=== PATIENT | female | born 1940 | race Caucasian/White ===

== ENCOUNTER 2019-11-19 06:22 | Inpatient (IN) ==
[2019-11-19 06:34] VITALS: BMI 28.1
[2019-11-19] MEDS ORDERED: NS 1000 ML 1,000 ML ONE (07:18)
[2019-11-19] MEDS ORDERED: ZOFRAN INJ 4 MG VIAL ONE (07:24)
[2019-11-19] MEDS ORDERED: ZOFRAN INJ 4 MG VIAL IVP ONE (07:24)
[2019-11-19 07:25] LABS: BASOPHILS % (AUTO) 0.4 % (0.2-1.0); EOSINOPHILS # (AUTO) 0.1 x10^3/uL (0.0-0.2); EOSINOPHILS % (AUTO) 1.2 % (0.9-2.9); HEMATOCRIT 40.6 % (36.0-47.0); HEMOGLOBIN 14.1 g/dL (12.0-16.0); LYMPHOCYTES # (AUTO) 1.6 X10^3/uL (1.3-2.9); LYMPHOCYTES % (AUTO) 14.9 % (21.0-51.0); MEAN CORPUSCULAR HEMOGLOBIN 32.6 pg (27.0-34.0); MEAN CORPUSCULAR HGB CONC 34.8 g/dL (33.0-35.0); MEAN CORPUSCULAR VOLUME 93.6 fL (80.0-100.0); MEAN PLATELET VOLUME 7.9 fL (7.4-11.0); MONOCYTES # (AUTO) 0.7 x10^3/uL (0.3-0.8); NEUTROPHILS # (AUTO) 7.9 x10^3/uL (2.2-4.8); NEUTROPHILS % (AUTO) 76.5 % (42.0-75.0); PLATELET COUNT 161 X10^3/uL (150.0-450.0); RED BLOOD COUNT 4.34 X10^6/uL (3.5-5.4); RED CELL DISTRIBUTION WIDTH 13.2 % (11.6-16.5); WHITE BLOOD COUNT 10.4 X10^3/uL (3.6-10.0)
[2019-11-19 07:36] LABS: ALANINE AMINOTRANSFERASE 29 Units/L (12-78); ALBUMIN 3.8 g/dL (3.4-5.0); ALKALINE PHOSPHATASE 75 Units/L (46-116); AMYLASE 42 Units/L (25-115); ASPARTATE AMINO TRANSFERASE 23 Units/L (15-37); BLOOD UREA NITROGEN 22 mg/dL (7-18); CALCIUM 10.2 mg/dL (8.5-10.1); CARBON DIOXIDE 29.1 mmol/L (21-32); CHLORIDE 101 mmol/L (98-107); COR NA(FOR HYPERGLY) 138 mmol/L (136-145); CREATININE 1.34 mg/dL (0.55-1.02); LIPASE 58 Units/L (73-393); SODIUM 138 mmol/L (136-145); eGFR NON BLACK RACES 40 (>60)
--- NOTE | 2019-11-19 07:51 | DR.EXTPAIN ---
HPI Time seen Time Seen by Provider: 11/19/19 06:58 PCP Primary Care Physician: gregorio HPI Comment HPI Comment: PATIENT IS 79YR OLD WHITE FEMALE IN ER WITH LOWER ABDOMINAL PAIN WITH CONSTIPATION FOR 4 DAYS. GETING WORSE. NO VOMITING. DECREASE URINE OUTPUT. NO FEVER. PAIN IS SHARP, MAINLY LLQ 8/10 AND RADIATES TO RECTAL AREA. PATIENT DID NOT TAKE MEDICATION FOR CONSTIPATION. Complaint/Symptoms Chief Complaint Doctor Comments: PATIENT HAVE NOT HAD BM 4 DAYS. LOWER BADOMINAL PAIN. Chief Complaint:: pt stated she has not hada bowel movement in 3 to 4 days and thinks she may be impacted. Nurses notes reviewed Nurses Notes Review: Yes Source History Provided: Patient and Family Member (SON.) Mode of arrival Mode of Arrival: Ambulatory Timing Onset of Chief Complaint: 11/15/19 Context History of: Arthritis Associated signs and symptoms Associated Signs and Symptoms: Weakness, Pain and Abdominal Pain PMH PMH Past Medical History: No Past Surgical History: Yes Surgical History: Unknown Past Surgical History Comment: to long ago Family History History of Family Medical Conditions: No Social History Does patient currently use any type of tobacco product: No Have you used tobacco products in the last 12 months: No Type of Tobacco Use: None Does any household member use tobacco: No Alcohol Use: None Do you use any recreational Drugs:: No Lives With: Family Lives Where: Home infectious screening In the last 2 months have you had wt loss of >10#?: NO Have you had fever, night sweats or hemotysis?: No Have you traveled outside the country in the last 6 months?: No Isolation: Standard ROS Review of Systems Constitutional: No Symptoms Reported and See HPI; negative Fever, Weakness and Fatigue Eyes: No Symptoms Reported and See HPI ENTM: No Symptoms Reported, See HPI and Ear Pain; negative Throat Pain Respiratoy: No Symptoms Reported and See HPI; negative Short of Breath and Wheezing Cardiovascular: No Symptoms Reported and See HPI Gastrointestinal/Abdominal: No Symptoms Reported, See HPI and Abdominal Pain Genitourinary: No Symptoms Reported and See HPI Neurological: No Symptoms Reported, See HPI and Problems Walking (OFF BALANCE WALKING.) Musculoskeletal: No Symptoms Reported and See HPI Integumentary: No Symptoms Reported and See HPI Hematologic/Lymphatic: No Symptoms Reported, See HPI and Easy Bruising Endocrine: No Symptoms Reported, See HPI and Increased Urine (DECREASE URINE OUTPUT.); negative Increased Thirst Psychiatric: No Symptoms Reported and See HPI All Other Systems: Reviewed and Negative PE Vital Signs Vitals: Pulse Rate 92 Respiratory Rate 16 Blood Pressure 144/72 O2 Sat by Pulse Oximetry 94 General Limitations: No Limitations General Appearance: Alert and In No Apparent Distress Head Head Exam: Normal Inspection and Atraumatic Eyes Eye exam: Normal Appearance ENT ENT Exam: Normal Exam, Normal Oropharynx, Normal External Ear Exam and TM's Normal Bilaterally Neck Neck Exam: Normal Inspection and Trachea Midline; negative Tenderness and Lymphadenopathy Chest Chest Inspection: Normal Inspection and Symmetric Chest Wall Rise; negative Tenderness Respiratory Respiratory Exam: Normal Lung Sounds Bilat; negative Accessory Muscle Use, Chest Wall Tenderness and Respiratory Distress Respiratory Exam: Bilateral: Rhonchi and Lower: Rhonchi Cardiovascular Cardiovascular Exam: Regular Rate, Normal Rhythm and Normal Heart Sounds Abdominal Exam Abdominal Exam: Normal Inspection, Normal Bowel Sounds, Soft and Tenderness Abdominal Tenderness: LLQ, Diffuse and Moderate Extremities Extremities Exam: Normal Inspection and Normal Capillary Refill; negative Tenderness and Edema Back Back Exam: Normal Inspection Neurological Neurological Exam: Alert and Oriented X3; negative Motor Sensory Deficit Psychiatric Psychiatric Exam: Normal Affect and Normal Mood Skin Skin Exam: Dry MDM Differential Diagnosis Differential Diagnosis: Other (CONSTIPATION, BOWEL OBSTRUCTION, DIVERTICULITIS, KIDNEY STONE, UTI, PYELONEPHRITIS.) COURSE Treatment Treatment: SEE ORDERS. PATIENT SIGN OUT TO DR. GAN AT 08:05AM. Education/Counseling Education/Counseling: Patient and Family ROR Labs Reviewed Laboratory Results Reviewed?: Yes Result Diagrams: 11/19/19 07:15 11/19/19 07:15 Laboratory: WBC 10.4 X10^3/uL (3.6-10.0) H 11/19/19 07:15 RBC 4.34 X10^6/uL (3.5-5.4) 11/19/19 07:15 Hgb 14.1 g/dL (12.0-16.0) 11/19/19 07:15 Hct 40.6 % (36.0-47.0) 11/19/19 07:15 MCV 93.6 fL (80.0-100.0) 11/19/19 07:15 MCH 32.6 pg (27.0-34.0) 11/19/19 07:15 MCHC 34.8 g/dL (33.0-35.0) 11/19/19 07:15 RDW 13.2 % (11.6-16.5) 11/19/19 07:15 Plt Count 161 X10^3/uL (150.0-450.0) 11/19/19 07:15 MPV 7.9 fL (7.4-11.0) 11/19/19 07:15 Neut % (Auto) 76.5 % (42.0-75.0) H 11/19/19 07:15 Lymph % (Auto) 14.9 % (21.0-51.0) L 11/19/19 07:15 [place] % (Auto) 7.0 % (0.0-13.0) 11/19/19 07:15 Eos % (Auto) 1.2 % (0.9-2.9) 11/19/19 07:15 Baso % (Auto) 0.4 % (0.2-1.0) 11/19/19 07:15 Neut # (Auto) 7.9 x10^3/uL (2.2-4.8) H 11/19/19 07:15 Lymph # (Auto) 1.6 X10^3/uL (1.3-2.9) 11/19/19 07:15 [place] # (Auto) 0.7 x10^3/uL (0.3-0.8) 11/19/19 07:15 Eos # (Auto) 0.1 x10^3/uL (0.0-0.2) 11/19/19 07:15 Baso # (Auto) 0.0 X10^3/uL (0.0-0.1) 11/19/19 07:15 Absolute Nucleated RBC 0.0 /100WBC 11/19/19 07:15 Sodium 138 mmol/L (136-145) 11/19/19 07:15 Corrected Sodium 138 mmol/L (136-145) 11/19/19 07:15 Potassium 3.9 mmol/L (3.5-5.1) 11/19/19 07:15 Chloride 101 mmol/L (98-107) 11/19/19 07:15 Carbon Dioxide 29.1 mmol/L (21-32) 11/19/19 07:15 BUN 22 mg/dL (7-18) H 11/19/19 07:15 Creatinine 1.34 mg/dL (0.55-1.02) H 11/19/19 07:15 Est GFR (MDRD) Af Amer 49 (>60) L 11/19/19 07:15 Est GFR (MDRD) Non-Af 40 (>60) L 11/19/19 07:15 Glucose 111 mg/dL (65-99) H 11/19/19 07:15 Calcium 10.2 mg/dL (8.5-10.1) H 11/19/19 07:15 Corrected Calcium TNP 11/19/19 07:15 Total Bilirubin 0.50 mg/dL (0.2-1.0) 11/19/19 07:15 AST 23 Units/L (15-37) 11/19/19 07:15 ALT 29 Units/L (12-78) 11/19/19 07:15 Alkaline Phosphatase 75 Units/L (46-116) 11/19/19 07:15 Total Protein 8.0 g/dL (6.4-8.2) 11/19/19 07:15 Albumin 3.8 g/dL (3.4-5.0) 11/19/19 07:15 Globulin 4.2 g/dL (2.5-4.5) 11/19/19 07:15 Albumin/Globulin Ratio 0.9 Ratio (1.1-2.1) L 11/19/19 07:15 Amylase 42 Units/L (25-115) 11/19/19 07:15 Lipase 58 Units/L (73-393) L 11/19/19 07:15 Opioid Opioid Risk Tool Total: 0 Total Score Risk Category: Low Risk Copyright: Saúl TAVERAS predicting aberrant behaviors Instructions Forms: Excuse From Work Patient Portal
--- NOTE | 2019-11-19 07:57 | CT ---
HISTORY:Constipation, nauseaStudy: CT abdomen and pelvis without contrastComparison:NoneTechnique: Multiple axial images of the abdomen and pelvis were obtained without IV contrast. Oral contrast was not administered. Dose reduction techniques including Automated Exposure Control (AEC) and adjustment of mA and kV were utilized.FINDINGS:Please note evaluation is limited without IV contrast.The lung bases are clear. The liver, spleen, pancreas, and adrenal glands are unremarkable in their unenhanced appearance. Gallbladder is removed. No renal calculi or obstructive uropathy.No free intraperitoneal air. Large volume of stool is present in the colon. There is a transition at the sigmoid colon to decompressed bowel loops with pericolonic stranding and fascial thickening in this region. Cannot exclude underlying inflammation, mass or stricture. No free fluid is identified. The appendix is normal.Mild superior endplate depressions are present at T12 and L1 which may represent Schmorl's nodes. There are sclerotic degenerative endplate changes at L3-L4. Limited evaluation of vascular structures due to lack of IV contrast. No pathologically enlarged lymph nodes are identified. Normal urinary bladder. Uterus is removed.IMPRESSION ABDOMEN/PELVIS:1. Large volume of retained stool throughout the colon with transition point at the sigmoid colon to decompressed bowel segment with surrounding pericolonic stranding and fascial thickening in this region. This could be due to underlying inflammation, stricture or mass. GI follow-up is recommended.Electronically signed by: RAMON MARIA (Nov 19, 2019 07:55:29)
[2019-11-19] MEDS ORDERED: NS 1000 ML 1,000 ML IV SCH (08:00)
--- NOTE | 2019-11-19 08:29 | ED.ABDFE ---
HPI Time Seen Time Seen by Provider: 11/19/19 06:58 PCP Primary Care Physician: gregorio HPI Comment HPI Comment: abd pain for a week Complaint Doctors Chief Complaint Comments: Pain began a week or so ago. Pt has some dementia so memory not exact. She vomited at onset and has had some nausea since. Constipated for 3-4 days. Chief Complaint:: pt stated she has not had a bowel movement in 3 to 4 days and thinks she may be impacted. Self Treatment fo Chief Complaint: miralax, stool softener Reviewed Nurses Notes Review: Yes Source History Provided: Patient and Family Member Mode of arrival Mode of Arrival: Ambulatory Timing Onset of Chief Complaint: 11/15/19 Came on: Gradually Duration Since Onset: Since Onset Location Location: LLQ Severity Severity: Moderate Quality Quality: Aching and Cramping Context History of: Abdominal surgery; denies Similar pain (dx) Modifying factors Worsening Factors: Nothing Improving Factors: Nothing Associated signs and symptoms Associated Signs and Symptoms: Nausea and Constipation PMH PMH Past Medical History: No Past Medical History: Dementia and Hypertension Past Medical History Comment: high cholesterol. Past Surgical History: Yes Surgical History: Cholecystectomy and Hysterectomy Family History History of Family Medical Conditions: No Social History Does patient currently use any type of tobacco product: No Have you used tobacco products in the last 12 months: No Type of Tobacco Use: None Does any household member use tobacco: No Alcohol Use: None Do you use any recreational Drugs:: No Lives With: Family Lives Where: Home infectious screening In the last 2 months have you had wt loss of >10#?: NO Have you had fever, night sweats or hemotysis?: No Have you traveled outside the country in the last 6 months?: No Isolation: Standard ROS Review of Systems Constitutional: No Symptoms Reported; negative Chills and Fever Respiratoy: No Symptoms Reported Cardiovascular: No Symptoms Reported Gastrointestinal/Abdominal: See HPI, Abdominal Pain, Constipation and Nausea Genitourinary: No Symptoms Reported; negative Dysuria and Frequency Neurological: No Symptoms Reported Musculoskeletal: No Symptoms Reported All Other Systems: Reviewed and Negative PE Vital Signs Vitals: Pulse Rate [Right Brachial] 77 Pulse Rate 92 Respiratory Rate 16 Blood Pressure [Right Arm] 159/72 Blood Pressure 144/72 O2 Sat by Pulse Oximetry 99 General Limitations: Other (some dementia) General Appearance: Alert and In No Apparent Distress Head Head Exam: Normal Inspection Eyes Eye exam: Normal Appearance and EOMI; negative Scleral Icterus ENT ENT Exam: Mucous Membranes Dry Chest Chest Inspection: Normal Inspection Respiratory Respiratory Exam: Normal Lung Sounds Bilat Cardiovascular Cardiovascular Exam: Regular Rate and Normal Rhythm Abdominal Exam Abdominal Exam: Normal Bowel Sounds, Soft, Distention, Tenderness and Guarding; negative Rebound, Rigidity and Pulsatile Mass Abdominal Tenderness: LLQ Rectal Rectal Exam: Deferred Extremeties Extremities Exam: Full ROM Neurologic Neurological Exam: Alert and Other (smiling, talkative, appropriate) Psychiatric Psychiatric Exam: Normal Affect and Normal Mood Skin Skin Exam: Warm, Dry and Normal Color; negative Rash and Diaphoresis MDM Differential Diagnosis Differential Diagnosis- Considerations may include:: Bowel Obstruction, Constipation and Diverticular disease COURSE Treatment Treatment: IV fluids. Due to distal colon inflammation, will defer an enema at this time. Reevaluation 1st: Unchanged ROR Labs Reviewed Laboratory Results Reviewed?: Yes Result Diagrams: 11/19/19 07:15 11/19/19 07:15 Laboratory: WBC 10.4 X10^3/uL (3.6-10.0) H 11/19/19 07:15 RBC 4.34 X10^6/uL (3.5-5.4) 11/19/19 07:15 Hgb 14.1 g/dL (12.0-16.0) 11/19/19 07:15 Hct 40.6 % (36.0-47.0) 11/19/19 07:15 MCV 93.6 fL (80.0-100.0) 11/19/19 07:15 MCH 32.6 pg (27.0-34.0) 11/19/19 07:15 MCHC 34.8 g/dL (33.0-35.0) 11/19/19 07:15 RDW 13.2 % (11.6-16.5) 11/19/19 07:15 Plt Count 161 X10^3/uL (150.0-450.0) 11/19/19 07:15 MPV 7.9 fL (7.4-11.0) 11/19/19 07:15 Neut % (Auto) 76.5 % (42.0-75.0) H 11/19/19 07:15 Lymph % (Auto) 14.9 % (21.0-51.0) L 11/19/19 07:15 [place] % (Auto) 7.0 % (0.0-13.0) 11/19/19 07:15 Eos % (Auto) 1.2 % (0.9-2.9) 11/19/19 07:15 Baso % (Auto) 0.4 % (0.2-1.0) 11/19/19 07:15 Neut # (Auto) 7.9 x10^3/uL (2.2-4.8) H 11/19/19 07:15 Lymph # (Auto) 1.6 X10^3/uL (1.3-2.9) 11/19/19 07:15 [place] # (Auto) 0.7 x10^3/uL (0.3-0.8) 11/19/19 07:15 Eos # (Auto) 0.1 x10^3/uL (0.0-0.2) 11/19/19 07:15 Baso # (Auto) 0.0 X10^3/uL (0.0-0.1) 11/19/19 07:15 Absolute Nucleated RBC 0.0 /100WBC 11/19/19 07:15 Sodium 138 mmol/L (136-145) 11/19/19 07:15 Corrected Sodium 138 mmol/L (136-145) 11/19/19 07:15 Potassium 3.9 mmol/L (3.5-5.1) 11/19/19 07:15 Chloride 101 mmol/L (98-107) 11/19/19 07:15 Carbon Dioxide 29.1 mmol/L (21-32) 11/19/19 07:15 BUN 22 mg/dL (7-18) H 11/19/19 07:15 Creatinine 1.34 mg/dL (0.55-1.02) H 11/19/19 07:15 Est GFR (MDRD) Af Amer 49 (>60) L 11/19/19 07:15 Est GFR (MDRD) Non-Af 40 (>60) L 11/19/19 07:15 Glucose 111 mg/dL (65-99) H 11/19/19 07:15 Calcium 10.2 mg/dL (8.5-10.1) H 11/19/19 07:15 Corrected Calcium TNP 11/19/19 07:15 Total Bilirubin 0.50 mg/dL (0.2-1.0) 11/19/19 07:15 AST 23 Units/L (15-37) 11/19/19 07:15 ALT 29 Units/L (12-78) 11/19/19 07:15 Alkaline Phosphatase 75 Units/L (46-116) 11/19/19 07:15 Total Protein 8.0 g/dL (6.4-8.2) 11/19/19 07:15 Albumin 3.8 g/dL (3.4-5.0) 11/19/19 07:15 Globulin 4.2 g/dL (2.5-4.5) 11/19/19 07:15 Albumin/Globulin Ratio 0.9 Ratio (1.1-2.1) L 11/19/19 07:15 Amylase 42 Units/L (25-115) 11/19/19 07:15 Lipase 58 Units/L (73-393) L 11/19/19 07:15 Other Results Comments: HISTORY:Constipation, nausea Study: CT abdomen and pelvis without contrast Comparison:None Technique: Multiple axial images of the abdomen and pelvis were obtained without IV contrast. Oral contrast was not administered. Dose reduction techniques including Automated Exposure Control (AEC) and adjustment of mA and kV were utilized. FINDINGS: Please note evaluation is limited without IV contrast. The lung bases are clear. The liver, spleen, pancreas, and adrenal glands are unremarkable in their unenhanced appearance. Gallbladder is removed. No renal calculi or obstructive uropathy. No free intraperitoneal air. Large volume of stool is present in the colon. There is a transition at the sigmoid colon to decompressed bowel loops with pericolonic stranding and fascial thickening in this region. Cannot exclude underlying inflammation, mass or stricture. No free fluid is identified. The appendix is normal. Mild superior endplate depressions are present at T12 and L1 which may represent Schmorl's nodes. There are sclerotic degenerative endplate changes at L3-L4. L imited evaluation of vascular structures due to lack of IV contrast. No pathologically enlarged lymph nodes are identified. Normal urinary bladder. Uterus is removed. IMPRESSION ABDOMEN/PELVIS: 1. Large volume of retained stool throughout the colon with transition point at the sigmoid colon to decompressed bowel segment with surrounding pericolonic stranding and fascial thickening in this region. This could be due to underlying inflammation, stricture or mass. GI follow-up is recommended. Electronically signed by: RAMON MARIA (Nov 19, 2019 07:55:29) Opioid Opioid Risk Tool Total: 0 Total Score Risk Category: Low Risk Copyright: Saúl TAVERAS predicting aberrant behaviors Instructions Forms: Excuse From Work Patient Portal ADDITIONAL NOTES Additional Notes Additional Notes: Patient admitted to Dr. Ram for colitis, abdominal pain, marked constipation.
[2019-11-19] MEDS ORDERED: NS 100 ML IV + SPIKE MINIBAG* 100 ML IV ONE (08:55)
[2019-11-19] MEDS ORDERED: FORTAZ or TAZICEF VIAL INJ ONE (08:55)
[2019-11-19] MEDS: FORTAZ or TAZICEF VIAL INJ 1 G in NS 100 ML IV + SPIKE MINIBAG* 100 ML IV SCH ×3 (09:00→21:00)
[2019-11-19] MEDS: LEVAQUIN PREMIX IV 750 MG 750 MG/150 ML BAG IV SCH (11:07)
[2019-11-19] MEDS: ALBUMIN HUMAN 25%- 100 ML 100 ML IV SCH (11:10)
[2019-11-19] MEDS: NORVASC TAB 5 MG PO SCH (11:12)
[2019-11-19] MEDS: CELEXA PO SCH (11:12)
[2019-11-19] MEDS: NS 1000 ML 1,000 ML IV SCH ×2 (11:13→18:01)
[2019-11-19] MEDS: IRBESARTAN 300 MG PO SCH (11:13)
[2019-11-19 12:51] LABS: BILIRUBIN,URINE NEGATIVE (NEGATIVE); BLOOD/HEMOGLOBIN,URINE 1+ (NEGATIVE); GLUCOSE, URINE NEGATIVE (NEGATIVE); KETONES,URINE 3+ (NEGATIVE); LEUKOCYTE ESTERASE ,URINE NEGATIVE (NEGATIVE); NITRITES,URINE NEGATIVE (NEGATIVE); PROTEIN,URINE NEGATIVE (NEGATIVE); UROBILINOGEN,URINE NORMAL (NORMAL)
[2019-11-19 13:17] LABS: APPEARANCE,URINE CLEAR (CLEAR); COLOR,URINE YELLOW (YELLOW)
[2019-11-19 13:18] LABS: RBC,URINE 0-2 /HPF (0-3)
[2019-11-19 13:19] LABS: BACTERIA,URINE NEGATIVE /HPF (NEGATIVE); SQUAMOUS EPITHELIAL CELL,UR RARE /HPF (NEGATIVE)
[2019-11-19] MEDS ORDERED: TYLENOL 325 MG TAB PO PRN (14:34)
[2019-11-19] MEDS: LOVENOX INJ 40 MG SYR SC SCH (14:40)
[2019-11-19] MEDS ORDERED: TYLENOL 325 MG TAB PO ONE (14:40)
[2019-11-19] MEDS: NAMENDA TAB 10 MG PO SCH (20:42)
[2019-11-19] MEDS: COLACE CAP 100 MG PO SCH (20:42)
[2019-11-19] MEDS: MILK OF MAGNESIA PO SCH (20:44)
--- NOTE | 2019-11-19 22:05 | DR.H&P ---
H&P - History & Physical for Day of: H&P Date: 11/19/19 - Chief Complaint Chief Complaint: ABDOMINAL PAIN, RECTAL PAIN, NAUSEA, DECREASED URINE OUTPUT - History of Present Illness History of Present Illness: IS A 79 YEAR OLD PATIENT OF OURS WHO PRESENTED TO THE TO THE ER WITH COMPLAINTS OF ABDOMINAL PAIN, RECTAL PAIN, NAUSEA, AND DECREASED URINE OUTPUT FOR THE PAST SEVERAL DAYS. SHE REPORTS THAT SHE HAS NOT HAD A BOWEL MOVEMENT IN THE PAST SEVERAL DAYS AND FEELS LIKE SHE MAY BE IMPACTED. ON ARRIVAL, VITALS WERE 98.1-92-16-94%-144/72. LABS WERE OBTAINED. ABNORMAL LAB VALUES INCLUDE THE FOLLOWING: WBC 10.4, BUN 22, CREATININE 1.34, GLUCOSE 111, CALCIUM 10.2, LIPASE 58. AN ABDOMEN/PELVIS CT WITHOUT CONTRAST WAS OBTAINED. IT REVEALED: Large volume of retained stool throughout the colon with transition point at the sigmoid colon to decompressed bowel segment with surrounding pericolonic stranding and fascial thickening in this region. This could be due to underlying inflammation, stricture or mass. GI follow-up is recommended. SHE WAS ADMITTED FOR FURTHER EVALUATION AND TREATMENT OF ABDOMINAL PAIN, COLITIS, AND MARKED CONSTIPATION. HE WAS STARTED ON NORMAL SALINE AT 125ML/HR, LEVAQUIN 750MG IV DAILY, FORTAZ 1G IV Q8H KARISSA, ALBUMIN 25% IV DAILY, LOVENOX 40MG SC DAILY, MILK OF MAGNESIA, COLACE, AND MIRALAX. OTHERWISE, WE WILL FOLLOW UP WITH AM LABS AND CONTINUE TO MONITOR. - Past Medical History Past Medical History: Hypertension, Dementia - Past Surgical History Surgical History: Appendectomy, Cholecystectomy, Hysterectomy, Tonsillectomy - Social History Does patient currently use any type of tobacco product: No Have you used tobacco products in the last 12 months: No Type of Tobacco Use: None Does any household member use tobacco: No Alcohol Use: None Drug Use: None Prescription drug monitoring program results: PDMP was not reviewed - Medications Home Medications: No Known Drug Allergies Allergy (Verified 11/19/19 06:29) CONTINUE taking the following medications amlodipine 5 mg PO DAILY 11/19/19 [History] citalopram 10 mg PO DAILY 11/19/19 [History] diphenhydramine HCl [Benadryl] 25 mg PO HS 11/19/19 [History] docusate sodium [Stool Softener] 100 mg PO DAILY 11/19/19 [History] famotidine 40 mg PO DAILY 11/19/19 [History] irbesartan 300 mg PO DAILY 11/19/19 [History] meloxicam 7.5 mg PO BID 11/19/19 [History] memantine 5 mg PO HS 11/19/19 [History] oxybutynin chloride 15 mg PO DAILY 11/19/19 [History] ranitidine HCl 150 mg PO DAILY 11/19/19 [History] rosuvastatin 5 mg PO HS 11/19/19 [History] tramadol 50 mg PO TID PRN 11/19/19 [History] - Review of Systems Constitutional: No Symptoms Reported Eyes: No Symptoms Reported ENT: No Symptoms Reported Respiratory: No Symptoms Reported Cardiovascular: No Symptoms Reported Gastrointestinal: See HPI, Nausea, Abdominal Pain, Constipation Genitourinary: See HPI Musculoskeletal: No Symptoms Reported Skin: No Symptoms Reported Neurological: No Symptoms Reported - Physical Exam Vital Signs: Temperature 98.1 F Pulse Rate [Right Brachial] 90 Pulse Rate 81 Respiratory Rate 22 Blood Pressure [Right Arm] 139/63 Blood Pressure 148/69 O2 Sat by Pulse Oximetry 97 Oriented: Normal Eyes: Normal Ear: Normal Nose: Normal Throat: Normal Respiratory: Diminished Throughout Cardiovascular: Normal : Normal Auscultation: Bowel Sounds: Normal Palpation: Normal Tenderness: Diffuse, Moderate. negative: Rebound, Rigidity Skin: Normal Musculoskeletal: Normal Psychiatric: Normal Mood Description: Calm Affect: Normal Speech Pattern: Clear - Assessment/Plan (1) Abdominal pain Qualifiers: Abdominal location: generalized Qualified Code(s): R10.84 - Generalized abdominal pain Status: Acute Plan: ADMIT, NORMAL SALINE AT 125ML/HR, LEVAQUIN 750MG IV DAILY, FORTAZ 1G IV Q8H KARISSA, ALBUMIN 25% IV DAILY, LOVENOX 40MG SC DAILY, MILK OF MAGNESIA, COLACE, AND MIRALAX. (2) Colitis Status: Acute (3) Constipation Qualifiers: Constipation type: unspecified constipation type Qualified Code(s): K59.00 - Constipation, unspecified Status: Acute - Allergies Allergies/Adverse Reactions: Allergies Allergy/AdvReac Type Severity Reaction Status Date / Time No Known Drug Allergies Allergy Verified 11/19/19 06:29
[2019-11-20] MEDS: ZOFRAN INJ 4 MG VIAL IVP PRN ×3 (00:27→21:42)
[2019-11-20] MEDS: NS 1000 ML 1,000 ML IV SCH ×4 (01:08→18:04)
[2019-11-20] MEDS ORDERED: NORCO 5/325 MG TAB ONE (04:43)
[2019-11-20] MEDS: NORCO 5/325 MG TAB PO PRN ×3 (04:53→23:10)
[2019-11-20 05:54] LABS: BASOPHILS % (AUTO) 0.3 % (0.2-1.0); EOSINOPHILS # (AUTO) 0.1 x10^3/uL (0.0-0.2); EOSINOPHILS % (AUTO) 0.7 % (0.9-2.9); HEMATOCRIT 34.7 % (36.0-47.0); MEAN CORPUSCULAR HEMOGLOBIN 32.7 pg (27.0-34.0); MEAN CORPUSCULAR HGB CONC 34.7 g/dL (33.0-35.0); MEAN CORPUSCULAR VOLUME 94.2 fL (80.0-100.0); MEAN PLATELET VOLUME 9.5 fL (7.4-11.0); MONOCYTES # (AUTO) 0.9 x10^3/uL (0.3-0.8); MONOCYTES % (AUTO) 9.5 % (0.0-13.0); NEUTROPHILS # (AUTO) 7.6 x10^3/uL (2.2-4.8); NEUTROPHILS % (AUTO) 79.5 % (42.0-75.0); PLATELET COUNT 136 X10^3/uL (150.0-450.0); RED BLOOD COUNT 3.68 X10^6/uL (3.5-5.4); RED CELL DISTRIBUTION WIDTH 13.1 % (11.6-16.5); WHITE BLOOD COUNT 9.5 X10^3/uL (3.6-10.0)
[2019-11-20 06:00] LABS: ALANINE AMINOTRANSFERASE 24 Units/L (12-78); ALBUMIN 3.3 g/dL (3.4-5.0); ALKALINE PHOSPHATASE 63 Units/L (46-116); ASPARTATE AMINO TRANSFERASE 22 Units/L (15-37); BLOOD UREA NITROGEN 16 mg/dL (7-18); CALCIUM 8.7 mg/dL (8.5-10.1); CARBON DIOXIDE 26.6 mmol/L (21-32); CHLORIDE 104 mmol/L (98-107); COR CA(FOR HYPOALB) 9.3 mg/dL (8.5-10.1); COR NA(FOR HYPERGLY) 140 mmol/L (136-145); CREATININE 1.06 mg/dL (0.55-1.02); SODIUM 140 mmol/L (136-145); TOTAL PROTEIN 6.6 g/dL (6.4-8.2); eGFR NON BLACK RACES 53 (>60)
[2019-11-20 06:04] LABS: HEMOGLOBIN 12.1 g/dL (12.0-16.0)
[2019-11-20] MEDS: FORTAZ or TAZICEF VIAL INJ 1 G in NS 100 ML IV + SPIKE MINIBAG* 100 ML IV SCH ×3 (06:29→21:35)
[2019-11-20] MEDS ORDERED: KLOR-CON PO PRN (06:42)
[2019-11-20] MEDS ORDERED: K-RIDER 10 MEQ/NS 100 ML 10 MEQ/100 ML BAG IV PRN (06:42)
[2019-11-20] MEDS ORDERED: POTASSIUM CHL 60 MEQ/NS 0.45% 500 ML IV PRN (06:42)
[2019-11-20] MEDS ORDERED: POTASSIUM CHL 40 MEQ/NS 0.45% 500 ML IV PRN (06:42)
[2019-11-20] MEDS ORDERED: MICRO K EXTEN CAP 10 MEQ PO PRN (06:42)
[2019-11-20] MEDS ORDERED: POTASSIUM CHLORIDE LIQ 20 MEQ UDC PO PRN (06:42)
--- NOTE | 2019-11-20 07:09 | RAD ---
HISTORYPain constipationSTUDYKUBCOMPARISONCT abdomen 11/19/2019FINDINGSThere is moderate fecal distention of the colon. There is no evidence for significant small bowel distention, mass, ascites. The lung bases are clear. Surgical clips right upper quadrant.IMPRESSIONDescribed findings consistent with constipation.Electronically signed by: HAO CORADO (Nov 20, 2019 07:08:18)
[2019-11-20] MEDS: K-DUR TAB 20 MEQ PO PRN (07:32)
[2019-11-20] MEDS: LOVENOX INJ 40 MG SYR SC SCH (09:46)
[2019-11-20] MEDS: ALBUMIN HUMAN 25%- 100 ML 100 ML IV SCH (09:47)
[2019-11-20] MEDS: LEVAQUIN PREMIX IV 750 MG 750 MG/150 ML BAG IV SCH (09:47)
[2019-11-20] MEDS: MIRALAX POWDER (1 DOSE 17 G) PO SCH (09:49)
[2019-11-20] MEDS: CELEXA PO SCH (09:50)
[2019-11-20] MEDS: NORVASC TAB 5 MG PO SCH (09:50)
[2019-11-20] MEDS: IRBESARTAN 300 MG PO SCH (09:55)
[2019-11-20] MEDS: NAMENDA TAB 10 MG PO SCH (21:35)
[2019-11-20] MEDS: MILK OF MAGNESIA PO SCH (21:35)
[2019-11-20] MEDS: COLACE CAP 100 MG PO SCH (21:35)
[2019-11-21] MEDS: NS 1000 ML 1,000 ML IV SCH ×4 (01:14→17:12)
[2019-11-21] MEDS ORDERED: MAALOX or MYLANTA ONE (03:07)
[2019-11-21] MEDS: MAALOX or MYLANTA PO PRN ×2 (03:11→20:59)
[2019-11-21] MEDS: ZOFRAN INJ 4 MG VIAL IVP PRN ×2 (04:42→21:01)
[2019-11-21] MEDS: FORTAZ or TAZICEF VIAL INJ 1 G in NS 100 ML IV + SPIKE MINIBAG* 100 ML IV SCH ×3 (05:06→21:00)
[2019-11-21 06:12] LABS: BASOPHILS % (AUTO) 0.6 % (0.2-1.0); EOSINOPHILS # (AUTO) 0.1 x10^3/uL (0.0-0.2); HEMATOCRIT 33.6 % (36.0-47.0); HEMOGLOBIN 11.6 g/dL (12.0-16.0); LYMPHOCYTES # (AUTO) 1.3 X10^3/uL (1.3-2.9); LYMPHOCYTES % (AUTO) 20.2 % (21.0-51.0); MEAN CORPUSCULAR HEMOGLOBIN 32.1 pg (27.0-34.0); MEAN CORPUSCULAR HGB CONC 34.5 g/dL (33.0-35.0); MEAN CORPUSCULAR VOLUME 93.1 fL (80.0-100.0); MEAN PLATELET VOLUME 8.2 fL (7.4-11.0); MONOCYTES # (AUTO) 0.5 x10^3/uL (0.3-0.8); MONOCYTES % (AUTO) 8.2 % (0.0-13.0); NEUTROPHILS # (AUTO) 4.4 x10^3/uL (2.2-4.8); PLATELET COUNT 135 X10^3/uL (150.0-450.0); RED BLOOD COUNT 3.61 X10^6/uL (3.5-5.4); RED CELL DISTRIBUTION WIDTH 13.3 % (11.6-16.5); WHITE BLOOD COUNT 6.3 X10^3/uL (3.6-10.0)
[2019-11-21 06:40] LABS: ALANINE AMINOTRANSFERASE 23 Units/L (12-78); ALBUMIN 3.3 g/dL (3.4-5.0); ALKALINE PHOSPHATASE 58 Units/L (46-116); ASPARTATE AMINO TRANSFERASE 21 Units/L (15-37); BLOOD UREA NITROGEN 11 mg/dL (7-18); CALCIUM 8.5 mg/dL (8.5-10.1); CARBON DIOXIDE 25.5 mmol/L (21-32); CHLORIDE 105 mmol/L (98-107); COR CA(FOR HYPOALB) 9.1 mg/dL (8.5-10.1); SODIUM 140 mmol/L (136-145); TOTAL PROTEIN 6.8 g/dL (6.4-8.2); eGFR NON BLACK RACES > 60 (>60)
--- NOTE | 2019-11-21 07:58 | RAD ---
HISTORYconstipation, abdominal pain htn, appendectomy, cholecystectomy,STUDYKUBCOMPARISONFebruary 2019 and November 19, 2019FINDINGSEvaluation of the abdo men demonstrates a moderate to large amount of fecal material within the distal colon with a paucity of rectal stool and minimally air distended loops of small bowel in the right abdomen consistent with constipation and partial distal obstruction as seen on CT. Cholecystectomy clips are noted. No patho logical soft tissue mass or calcification can be observed. Lumbar spondylosis and scoliosis are noted .IMPRESSIONFindings of constipation/partial distal obstruction as seen on CT. Overall, stable.Electro nically signed by: GARRY POWELL (Nov 21, 2019 07:57:16)
[2019-11-21] MEDS: NORVASC TAB 5 MG PO SCH (08:53)
[2019-11-21] MEDS: CELEXA PO SCH (08:53)
[2019-11-21] MEDS: ALBUMIN HUMAN 25%- 100 ML 100 ML IV SCH (08:54)
[2019-11-21] MEDS: MIRALAX POWDER (1 DOSE 17 G) PO SCH (08:54)
[2019-11-21] MEDS: IRBESARTAN 300 MG PO SCH (08:54)
[2019-11-21] MEDS: LEVAQUIN PREMIX IV 750 MG 750 MG/150 ML BAG IV SCH (08:54)
[2019-11-21] MEDS: LOVENOX INJ 40 MG SYR SC SCH (08:58)
[2019-11-21] MEDS: NORCO 5/325 MG TAB PO PRN (14:11)
--- NOTE | 2019-11-21 14:25 | PCM.PROG ---
Progress Note Progress Note for Day of Date of Exam: 11/21/19 Subjective Subjective: Patient seen at bedside, reports having nausea and vomiting. She has not been able to eat due to feeling sick to her stomach. She had a small BM yesterday. She has been getting docusate, miralax and milk of magnesia. KUB this morning showed stool in the distal colon and partial distal obstruction. Past Medical Family Social History Past Med/Fam/Surg Hx: No changes since H&P Allergies: Allergies No Known Drug Allergies Allergy (Verified 11/19/19 06:29) Review of Systems ROS: No change since H&P Vital Signs and I&O's Vital Signs: Temperature 98.5 F Pulse Rate [Right Brachial] 73 Pulse Rate 81 Respiratory Rate 18 Blood Pressure [Right Arm] 169/72 Blood Pressure 148/69 O2 Sat by Pulse Oximetry 94 Intake and Output: Intake & Output 11/18/19 11/19/19 11/20/19 11/21/19 23:59 23:59 23:59 23:59 Intake Total 2060 2646 / 2646 875 / 875 Balance 2060 2646 / 2646 875 / 875 Physical Exam Oriented: Normal Eyes: Normal Ear: Normal Nose: Normal Throat: Normal Respiratory: Normal Cardiovascular: Normal Auscultation: Bowel Sounds: Decreased Tenderness: Normal; negative Rebound and Rigidity Skin: Normal Musculoskeletal: Normal Psychiatric: Normal Mood Description: Calm Affect: Normal Speech Pattern: Clear and Appropriate Laboratory and Diagnostics Result Diagrams: 11/21/19 05:50 11/21/19 05:50 Labs: Laboratory WBC 6.3 X10^3/uL (3.6-10.0) 11/21/19 05:50 RBC 3.61 X10^6/uL (3.5-5.4) 11/21/19 05:50 Hgb 11.6 g/dL (12.0-16.0) L 11/21/19 05:50 Hct 33.6 % (36.0-47.0) L 11/21/19 05:50 MCV 93.1 fL (80.0-100.0) 11/21/19 05:50 MCH 32.1 pg (27.0-34.0) 11/21/19 05:50 MCHC 34.5 g/dL (33.0-35.0) 11/21/19 05:50 RDW 13.3 % (11.6-16.5) 11/21/19 05:50 Plt Count 135 X10^3/uL (150.0-450.0) L 11/21/19 05:50 MPV 8.2 fL (7.4-11.0) 11/21/19 05:50 Neut % (Auto) 70.0 % (42.0-75.0) 11/21/19 05:50 Lymph % (Auto) 20.2 % (21.0-51.0) L 11/21/19 05:50 [place] % (Auto) 8.2 % (0.0-13.0) 11/21/19 05:50 Eos % (Auto) 1.0 % (0.9-2.9) 11/21/19 05:50 Baso % (Auto) 0.6 % (0.2-1.0) 11/21/19 05:50 Neut # (Auto) 4.4 x10^3/uL (2.2-4.8) 11/21/19 05:50 Lymph # (Auto) 1.3 X10^3/uL (1.3-2.9) 11/21/19 05:50 [place] # (Auto) 0.5 x10^3/uL (0.3-0.8) 11/21/19 05:50 Eos # (Auto) 0.1 x10^3/uL (0.0-0.2) 11/21/19 05:50 Baso # (Auto) 0.0 X10^3/uL (0.0-0.1) 11/21/19 05:50 Absolute Nucleated RBC 0.0 /100WBC 11/21/19 05:50 Sodium 140 mmol/L (136-145) 11/21/19 05:50 Corrected Sodium TNP 11/21/19 05:50 Potassium 3.7 mmol/L (3.5-5.1) 11/21/19 05:50 Chloride 105 mmol/L (98-107) 11/21/19 05:50 Carbon Dioxide 25.5 mmol/L (21-32) 11/21/19 05:50 BUN 11 mg/dL (7-18) 11/21/19 05:50 Creatinine 0.90 mg/dL (0.55-1.02) 11/21/19 05:50 Est GFR (MDRD) Af Amer > 60 (>60) 11/21/19 05:50 Est GFR (MDRD) Non-Af > 60 (>60) 11/21/19 05:50 Glucose 110 mg/dL (65-99) H 11/21/19 05:50 Calcium 8.5 mg/dL (8.5-10.1) 11/21/19 05:50 Corrected Calcium 9.1 mg/dL (8.5-10.1) 11/21/19 05:50 Total Bilirubin 0.30 mg/dL (0.2-1.0) 11/21/19 05:50 AST 21 Units/L (15-37) 11/21/19 05:50 ALT 23 Units/L (12-78) 11/21/19 05:50 Alkaline Phosphatase 58 Units/L (46-116) 11/21/19 05:50 Total Protein 6.8 g/dL (6.4-8.2) 11/21/19 05:50 Albumin 3.3 g/dL (3.4-5.0) L 11/21/19 05:50 Globulin 3.5 g/dL (2.5-4.5) 11/21/19 05:50 Albumin/Globulin Ratio 0.9 Ratio (1.1-2.1) L 11/21/19 05:50 Amylase 42 Units/L (25-115) 11/19/19 07:15 Lipase 58 Units/L (73-393) L 11/19/19 07:15 Specimen Type Clean catch urine 11/19/19 12:24 Urine Color Yellow (YELLOW) 11/19/19 12:24 Urine Appearance Clear (CLEAR) 11/19/19 12:24 Urine pH 5.0 (5.0 - 8.0) 11/19/19 12:24 Ur Specific [place] 1.015 (1.000-1.030) 11/19/19 12:24 Urine Protein Negative (NEGATIVE) 11/19/19 12:24 Urine Glucose (UA) Negative (NEGATIVE) 11/19/19 12:24 Urine Ketones 3+ (NEGATIVE) 11/19/19 12:24 Urine Occult Blood 1+ (NEGATIVE) 11/19/19 12:24 Urine Nitrite Negative (NEGATIVE) 11/19/19 12:24 Urine Bilirubin Negative (NEGATIVE) 11/19/19 12:24 Urine Urobilinogen Normal (NORMAL) 11/19/19 12:24 Ur Leukocyte Esterase Negative (NEGATIVE) 11/19/19 12:24 Urine RBC 0-2 /HPF (0-3) 11/19/19 12:24 Urine WBC None seen /HPF (0-5) 11/19/19 12:24 Ur Squamous Epith Cells Rare /HPF (NEGATIVE) 11/19/19 12:24 Urine Bacteria Negative /HPF (NEGATIVE) 11/19/19 12:24 Ur Culture Indicated? No/not indicated 11/19/19 12:24 Plan (1) Abdominal pain: Status: Acute Qualifiers: Abdominal location: generalized Qualified Code(s): R10.84 - Generalized abdominal pain Plan: KUB showed stool in the distal colon along with partial obstruction Keep NPO except ice chips Give enema Repeat KUB in the AM (2) Colitis: Status: Acute Plan: Continue IV antibiotics, NPO and pain control Continue hydration (3) Constipation: Status: Acute Qualifiers: Constipation type: unspecified constipation type Qualified Code(s): K59.00 - Constipation, unspecified
[2019-11-21] MEDS ORDERED: CHRONULAC PO ONE (14:54)
[2019-11-21] MEDS ORDERED: CHRONULAC ONE (14:59)
[2019-11-21] MEDS: COLACE CAP 100 MG PO SCH (21:00)
[2019-11-21] MEDS: MILK OF MAGNESIA PO SCH (21:00)
[2019-11-21] MEDS: NAMENDA TAB 10 MG PO SCH (21:07)
[2019-11-21] MEDS: BENADRYL CAP/TAB 25 MG PO SCH (22:02)
[2019-11-21] MEDS: VALIUM PO PRN (22:40)
[2019-11-22] MEDS: NS 1000 ML 1,000 ML IV SCH ×3 (02:54→17:13)
[2019-11-22] MEDS: FORTAZ or TAZICEF VIAL INJ 1 G in NS 100 ML IV + SPIKE MINIBAG* 100 ML IV SCH ×3 (05:33→21:13)
[2019-11-22] MEDS: ZOFRAN INJ 4 MG VIAL IVP PRN (05:52)
[2019-11-22 06:25] LABS: BASOPHILS # (AUTO) 0.1 X10^3/uL (0.0-0.1); BASOPHILS % (AUTO) 0.8 % (0.2-1.0); EOSINOPHILS # (AUTO) 0.1 x10^3/uL (0.0-0.2); EOSINOPHILS % (AUTO) 1.9 % (0.9-2.9); HEMATOCRIT 32.1 % (36.0-47.0); HEMOGLOBIN 11.2 g/dL (12.0-16.0); LYMPHOCYTES # (AUTO) 1.4 X10^3/uL (1.3-2.9); LYMPHOCYTES % (AUTO) 20.8 % (21.0-51.0); MEAN CORPUSCULAR HEMOGLOBIN 32.3 pg (27.0-34.0); MEAN CORPUSCULAR HGB CONC 34.8 g/dL (33.0-35.0); MEAN CORPUSCULAR VOLUME 92.8 fL (80.0-100.0); MONOCYTES # (AUTO) 0.5 x10^3/uL (0.3-0.8); MONOCYTES % (AUTO) 8.1 % (0.0-13.0); NEUTROPHILS # (AUTO) 4.5 x10^3/uL (2.2-4.8); NEUTROPHILS % (AUTO) 68.4 % (42.0-75.0); PLATELET COUNT 123 X10^3/uL (150.0-450.0); RED BLOOD COUNT 3.45 X10^6/uL (3.5-5.4); RED CELL DISTRIBUTION WIDTH 13.2 % (11.6-16.5); WHITE BLOOD COUNT 6.5 X10^3/uL (3.6-10.0)
[2019-11-22 06:41] LABS: ALANINE AMINOTRANSFERASE 23 Units/L (12-78); ALBUMIN 3.4 g/dL (3.4-5.0); ALKALINE PHOSPHATASE 52 Units/L (46-116); ASPARTATE AMINO TRANSFERASE 26 Units/L (15-37); BLOOD UREA NITROGEN 9 mg/dL (7-18); CALCIUM 8.5 mg/dL (8.5-10.1); CARBON DIOXIDE 26.8 mmol/L (21-32); CHLORIDE 107 mmol/L (98-107); CREATININE 0.79 mg/dL (0.55-1.02); SODIUM 143 mmol/L (136-145); TOTAL PROTEIN 6.6 g/dL (6.4-8.2); eGFR NON BLACK RACES > 60 (>60)
[2019-11-22] MEDS: LEVAQUIN PREMIX IV 750 MG 750 MG/150 ML BAG IV SCH (08:31)
[2019-11-22] MEDS: LOVENOX INJ 40 MG SYR SC SCH (08:31)
[2019-11-22] MEDS: ALBUMIN HUMAN 25%- 100 ML 100 ML IV SCH (08:32)
[2019-11-22] MEDS: CELEXA PO SCH (09:37)
[2019-11-22] MEDS: IRBESARTAN 300 MG PO SCH (09:38)
[2019-11-22] MEDS: MIRALAX POWDER (1 DOSE 17 G) PO SCH ×2 (09:38→21:13)
[2019-11-22] MEDS: NORVASC TAB 5 MG PO SCH (09:45)
--- NOTE | 2019-11-22 12:54 | CT ---
HISTORYABD PAIN, CONSTIPATION, SBOSTUDYABDOMEN/PELVIS WITH CONCOMPARISONCT November 19, 2019 showing a large amount of stool throughout the colon with a transition in the sigmoid colon to decompressed bowel this was felt to represent a point of colonic obstruction.TECHNIQUEMultiple axial images of the abdomen and pelvis were obtained from the lung bases to the pubic symphysis withthe administration of IV but no oral contrast. Dose reduction techniques including Automated Exposure Control (AEC) and adjustment of mA and kV were utilized.FINDINGSThe visualized portions of the lung bases are unremarkable . The liver, spleen, pancreas, kidneys, and adrenal glands are unremarkable in their CT appearance. Multiple calcified granulomas are seen in the spleen. There are no focal hepatic lesions. The gallbladder is surgically absent.. No significant mesenteric lymphadenopathy or stranding can be observed. The abdominal aorta and IVC are normal. There is no aneurysm or retroperitoneal adenopathy. There is a persistent large amount of stool throughout the colon in fact there may be more than was present on the last study again there is a point of transition in the sigmoid colon but no high-grade mass or wall thickening is seen. Very little stool is seen in the rectum or lower sigmoid. Large amount of stool seen in the proximal colon there is no small-bowel distention i.e. this is functional colon obstruction not small-bowel obstruction. No free fluid or free air is seen within the abdomen. No bowel wall thickening or small bowel dilatation is present. specifically, there is no diverticulosis noted within the sigmoid colon. The urinary bladder is grossly unremarkable. The bony structures are grossly intact.IMPRESSIONPersistent large amount of stool throughout the colon in fact there appears to be more than was present on the last study of November 19. Again there appears to be a point of transition or no narrowing in the sigmoid colon the may be a mild stricture no high-grade obstruction is seen colonoscopy is recommended. There is mild wall thickening in this segment of the sigmoid colon at the junction to the descending colon. This again could be colitis but is 2 longer stricture to represent carcinoma. The amount of stool has increased not decreased since the last study.There is no small-bowel obstruction or distentionOld granulomas diseaseNo free air free fluid in the abdomenThere is degenerative disc disease greatest on the right at L3-4.Electronically signed by: MELE JONES (Nov 22, 2019 12:52:45)
--- NOTE | 2019-11-22 16:09 | DR.PROGNOT ---
Hospital Progress Notes - Progress Note for Day of: Progress Note Date: 11/22/19 - Chief Complaint Chief Complaint: no vomiting today .abdominal pain is better . passing gas and had normal bowel movement last night . CT and Xray are showing partial obstruction at the sigmoid area . - Past Medical Family Social History Past Med/Fam/Surg Hx: No changes since H&P Allergies: Allergies No Known Drug Allergies Allergy (Verified 11/19/19 06:29) - Review Of Systems ROS: No change since H&P - Vital Signs Vital Signs: Temperature 98.5 F Pulse Rate [Right Brachial] 72 Pulse Rate 81 Respiratory Rate 18 Blood Pressure [Right Arm] 154/70 Blood Pressure 148/69 O2 Sat by Pulse Oximetry 95 - Physical Exam Oriented: Normal Eyes: Normal Ear: Normal Nose: Normal Throat: Normal Respiratory: Normal Cardiovascular: Normal : Normal GI:Auscultation: Decreased GI:Palpation: Normal GI: Tenderness: Other (diffise moderate tenderness of mid abdomin , no rebound . BS+). negative: Rebound, Rigidity Skin: Normal Musculoskeletal: Normal Psychiatric: Normal Mood Description: Calm Affect: Normal Speech Pattern: Clear, Appropriate - Laboratory and Diagnostics Result Diagrams: 11/22/19 05:30 11/22/19 05:30 Labs: Laboratory WBC 6.5 X10^3/uL (3.6-10.0) 11/22/19 05:30 RBC 3.45 X10^6/uL (3.5-5.4) L 11/22/19 05:30 Hgb 11.2 g/dL (12.0-16.0) L 11/22/19 05:30 Hct 32.1 % (36.0-47.0) L 11/22/19 05:30 MCV 92.8 fL (80.0-100.0) 11/22/19 05:30 MCH 32.3 pg (27.0-34.0) 11/22/19 05:30 MCHC 34.8 g/dL (33.0-35.0) 11/22/19 05:30 RDW 13.2 % (11.6-16.5) 11/22/19 05:30 Plt Count 123 X10^3/uL (150.0-450.0) L 11/22/19 05:30 MPV 9.0 fL (7.4-11.0) 11/22/19 05:30 Neut % (Auto) 68.4 % (42.0-75.0) 11/22/19 05:30 Lymph % (Auto) 20.8 % (21.0-51.0) L 11/22/19 05:30 [place] % (Auto) 8.1 % (0.0-13.0) 11/22/19 05:30 Eos % (Auto) 1.9 % (0.9-2.9) 11/22/19 05:30 Baso % (Auto) 0.8 % (0.2-1.0) 11/22/19 05:30 Neut # (Auto) 4.5 x10^3/uL (2.2-4.8) 11/22/19 05:30 Lymph # (Auto) 1.4 X10^3/uL (1.3-2.9) 11/22/19 05:30 [place] # (Auto) 0.5 x10^3/uL (0.3-0.8) 11/22/19 05:30 Eos # (Auto) 0.1 x10^3/uL (0.0-0.2) 11/22/19 05:30 Baso # (Auto) 0.1 X10^3/uL (0.0-0.1) 11/22/19 05:30 Absolute Nucleated RBC 0.0 /100WBC 11/22/19 05:30 Sodium 143 mmol/L (136-145) 11/22/19 05:30 Corrected Sodium TNP 11/22/19 05:30 Potassium 4.0 mmol/L (3.5-5.1) 11/22/19 05:30 Chloride 107 mmol/L (98-107) 11/22/19 05:30 Carbon Dioxide 26.8 mmol/L (21-32) 11/22/19 05:30 BUN 9 mg/dL (7-18) 11/22/19 05:30 Creatinine 0.79 mg/dL (0.55-1.02) 11/22/19 05:30 Est GFR (MDRD) Af Amer > 60 (>60) 11/22/19 05:30 Est GFR (MDRD) Non-Af > 60 (>60) 11/22/19 05:30 Glucose 79 mg/dL (65-99) 11/22/19 05:30 Calcium 8.5 mg/dL (8.5-10.1) 11/22/19 05:30 Corrected Calcium TNP 11/22/19 05:30 Total Bilirubin 0.30 mg/dL (0.2-1.0) 11/22/19 05:30 AST 26 Units/L (15-37) 11/22/19 05:30 ALT 23 Units/L (12-78) 11/22/19 05:30 Alkaline Phosphatase 52 Units/L (46-116) 11/22/19 05:30 Total Protein 6.6 g/dL (6.4-8.2) 11/22/19 05:30 Albumin 3.4 g/dL (3.4-5.0) 11/22/19 05:30 Globulin 3.2 g/dL (2.5-4.5) 11/22/19 05:30 Albumin/Globulin Ratio 1.1 Ratio (1.1-2.1) 11/22/19 05:30 Amylase 42 Units/L (25-115) 11/19/19 07:15 Lipase 58 Units/L (73-393) L 11/19/19 07:15 Specimen Type Clean catch urine 11/19/19 12:24 Urine Color Yellow (YELLOW) 11/19/19 12:24 Urine Appearance Clear (CLEAR) 11/19/19 12:24 Urine pH 5.0 (5.0 - 8.0) 11/19/19 12:24 Ur Specific [place] 1.015 (1.000-1.030) 11/19/19 12:24 Urine Protein Negative (NEGATIVE) 11/19/19 12:24 Urine Glucose (UA) Negative (NEGATIVE) 11/19/19 12:24 Urine Ketones 3+ (NEGATIVE) 11/19/19 12:24 Urine Occult Blood 1+ (NEGATIVE) 11/19/19 12:24 Urine Nitrite Negative (NEGATIVE) 11/19/19 12:24 Urine Bilirubin Negative (NEGATIVE) 11/19/19 12:24 Urine Urobilinogen Normal (NORMAL) 11/19/19 12:24 Ur Leukocyte Esterase Negative (NEGATIVE) 11/19/19 12:24 Urine RBC 0-2 /HPF (0-3) 11/19/19 12:24 Urine WBC None seen /HPF (0-5) 11/19/19 12:24 Ur Squamous Epith Cells Rare /HPF (NEGATIVE) 11/19/19 12:24 Urine Bacteria Negative /HPF (NEGATIVE) 11/19/19 12:24 Ur Culture Indicated? No/not indicated 11/19/19 12:24 - Assessment and Plan 1: prtial bowel obstruction . abnormal abdominl CT and XRAY with partial obstruction of sigmoid colon . will give enemas tonight and do colonoscopy in am . ( Limited test with enema prep only ) - Problem Patient Problems: Patient Problems Abdominal pain (Acute) R10.9 Colitis (Acute) K52.9 Constipation (Acute) K59.00
--- NOTE | 2019-11-22 20:58 | PCM.PROG ---
Progress Note - Progress Note for Day of Date of Exam: 11/20/19 - Subjective Subjective: IS BEING TREATED FOR ABDOMINAL PAIN, COLITIS, AND CONSTIPATION. TODAY, SHE IS ALERT AND ORIENTED, LYING IN BED ON MORNING ROUNDS. SHE CONTINUES WITH COMPLAINTS OF ABDOMINAL PAIN TODAY. SHE DENIES A BOWEL MOVEMENT SINCE ADMISSION. ON EXAMINATION, HEART IS REGULAR IN RATE AND RHYTHM. BILATERAL LUNGS ARE NOTED WITH DIMINISHED LUNG SOUNDS THROUGHOUT. ABDOMEN IS DISTENDED AND NOTED WITH DIFFUSE TENDERNESS TO PALPATION. HYPOACTIVE BOWEL SOUNDS ARE NOTED IN ALL QUADRANTS. HER VITALS THIS MORNING ARE: 98.6-81-20-93%-147/65. LABS WERE OBTAINED. ABNORMAL LAB VALUES INCLUDE THE FOLLOWING: HCT 34.7, PLT COUNT 136, CREATININE 1.06, GLUCOSE 115, ALBUMIN 3.3. A KUB WAS OBTAINED TODAY AND REVEALED: Described findings consistent with constipation. SHE IS CURRENTLY RECEIVING IV FLUIDS, THE POTASSIUM AND MAGNESIUM PROTOCOLS, IV LEVAQUIN, IV FORTAZ, ALBUMIN, AND HOME MEDICATIONS WERE RESUMED. WE WILL CONTINUE WITH CURRENT PLAN OF CARE TODAY. OTHERWISE, WE PLAN TO FOLLOW UP WITH AM LABS AND CONTINUE TO MONITOR. - Past Medical Family Social History Past Med/Fam/Surg Hx: No changes since H&P Allergies: Allergies No Known Drug Allergies Allergy (Verified 11/19/19 06:29) - Review of Systems ROS: No change since H&P - Vital Signs and I&O's Vital Signs: Temperature 98.0 F Pulse Rate [Right Brachial] 76 Pulse Rate 81 Respiratory Rate 18 Blood Pressure [Right Arm] 148/65 Blood Pressure 148/69 O2 Sat by Pulse Oximetry 95 Intake and Output: Intake & Output 11/20/19 11/21/19 11/22/19 11/23/19 11:59 11:59 11:59 11:59 Intake Total 2060 3521 / 3521 2720 / 2720 1480 / 1480 Balance 2060 3521 / 3521 2720 / 2720 1480 / 1480 - Physical Exam Oriented: Normal Eyes: Normal Ear: Normal Nose: Normal Throat: Normal Respiratory: Normal Cardiovascular: Normal : Normal Auscultation: Bowel Sounds: Decreased Tenderness: Diffuse, Other (diffuse moderate tenderness of mid abdomen , no rebound . BS+). negative: Rebound, Rigidity Skin: Normal Musculoskeletal: Normal Psychiatric: Normal Mood Description: Calm Affect: Normal Speech Pattern: Clear, Appropriate - Laboratory and Diagnostics Result Diagrams: 11/22/19 05:30 11/22/19 05:30 Labs: Laboratory WBC 6.5 X10^3/uL (3.6-10.0) 11/22/19 05:30 RBC 3.45 X10^6/uL (3.5-5.4) L 11/22/19 05:30 Hgb 11.2 g/dL (12.0-16.0) L 11/22/19 05:30 Hct 32.1 % (36.0-47.0) L 11/22/19 05:30 MCV 92.8 fL (80.0-100.0) 11/22/19 05:30 MCH 32.3 pg (27.0-34.0) 11/22/19 05:30 MCHC 34.8 g/dL (33.0-35.0) 11/22/19 05:30 RDW 13.2 % (11.6-16.5) 11/22/19 05:30 Plt Count 123 X10^3/uL (150.0-450.0) L 11/22/19 05:30 MPV 9.0 fL (7.4-11.0) 11/22/19 05:30 Neut % (Auto) 68.4 % (42.0-75.0) 11/22/19 05:30 Lymph % (Auto) 20.8 % (21.0-51.0) L 11/22/19 05:30 [place] % (Auto) 8.1 % (0.0-13.0) 11/22/19 05:30 Eos % (Auto) 1.9 % (0.9-2.9) 11/22/19 05:30 Baso % (Auto) 0.8 % (0.2-1.0) 11/22/19 05:30 Neut # (Auto) 4.5 x10^3/uL (2.2-4.8) 11/22/19 05:30 Lymph # (Auto) 1.4 X10^3/uL (1.3-2.9) 11/22/19 05:30 [place] # (Auto) 0.5 x10^3/uL (0.3-0.8) 11/22/19 05:30 Eos # (Auto) 0.1 x10^3/uL (0.0-0.2) 11/22/19 05:30 Baso # (Auto) 0.1 X10^3/uL (0.0-0.1) 11/22/19 05:30 Absolute Nucleated RBC 0.0 /100WBC 11/22/19 05:30 Sodium 143 mmol/L (136-145) 11/22/19 05:30 Corrected Sodium TNP 11/22/19 05:30 Potassium 4.0 mmol/L (3.5-5.1) 11/22/19 05:30 Chloride 107 mmol/L (98-107) 11/22/19 05:30 Carbon Dioxide 26.8 mmol/L (21-32) 11/22/19 05:30 BUN 9 mg/dL (7-18) 11/22/19 05:30 Creatinine 0.79 mg/dL (0.55-1.02) 11/22/19 05:30 Est GFR (MDRD) Af Amer > 60 (>60) 11/22/19 05:30 Est GFR (MDRD) Non-Af > 60 (>60) 11/22/19 05:30 Glucose 79 mg/dL (65-99) 11/22/19 05:30 Calcium 8.5 mg/dL (8.5-10.1) 11/22/19 05:30 Corrected Calcium TNP 11/22/19 05:30 Total Bilirubin 0.30 mg/dL (0.2-1.0) 11/22/19 05:30 AST 26 Units/L (15-37) 11/22/19 05:30 ALT 23 Units/L (12-78) 11/22/19 05:30 Alkaline Phosphatase 52 Units/L (46-116) 11/22/19 05:30 Total Protein 6.6 g/dL (6.4-8.2) 11/22/19 05:30 Albumin 3.4 g/dL (3.4-5.0) 11/22/19 05:30 Globulin 3.2 g/dL (2.5-4.5) 11/22/19 05:30 Albumin/Globulin Ratio 1.1 Ratio (1.1-2.1) 11/22/19 05:30 Amylase 42 Units/L (25-115) 11/19/19 07:15 Lipase 58 Units/L (73-393) L 11/19/19 07:15 Specimen Type Clean catch urine 11/19/19 12:24 Urine Color Yellow (YELLOW) 11/19/19 12:24 Urine Appearance Clear (CLEAR) 11/19/19 12:24 Urine pH 5.0 (5.0 - 8.0) 11/19/19 12:24 Ur Specific [place] 1.015 (1.000-1.030) 11/19/19 12:24 Urine Protein Negative (NEGATIVE) 11/19/19 12:24 Urine Glucose (UA) Negative (NEGATIVE) 11/19/19 12:24 Urine Ketones 3+ (NEGATIVE) 11/19/19 12:24 Urine Occult Blood 1+ (NEGATIVE) 11/19/19 12:24 Urine Nitrite Negative (NEGATIVE) 11/19/19 12:24 Urine Bilirubin Negative (NEGATIVE) 11/19/19 12:24 Urine Urobilinogen Normal (NORMAL) 11/19/19 12:24 Ur Leukocyte Esterase Negative (NEGATIVE) 11/19/19 12:24 Urine RBC 0-2 /HPF (0-3) 11/19/19 12:24 Urine WBC None seen /HPF (0-5) 11/19/19 12:24 Ur Squamous Epith Cells Rare /HPF (NEGATIVE) 11/19/19 12:24 Urine Bacteria Negative /HPF (NEGATIVE) 11/19/19 12:24 Ur Culture Indicated? No/not indicated 11/19/19 12:24 - Plan (1) Abdominal pain Status: Acute Qualifiers: Abdominal location: generalized Qualified Code(s): R10.84 - Generalized abdominal pain Plan: KUB showed stool in the distal colon along with partial obstruction. Keep NPO except ice chips. Repeat KUB in the AM (2) Colitis Status: Acute Plan: Continue IV antibiotics, NPO and pain control. Continue hydration (3) Constipation Status: Acute Qualifiers: Constipation type: unspecified constipation type Qualified Code(s): K59.00 - Constipation, unspecified
[2019-11-22] MEDS: COLACE CAP 100 MG PO SCH (21:12)
[2019-11-22] MEDS: MILK OF MAGNESIA PO SCH (21:12)
[2019-11-22] MEDS: NAMENDA TAB 10 MG PO SCH (21:13)
[2019-11-22] MEDS: BENADRYL CAP/TAB 25 MG PO SCH (21:13)
[2019-11-22] MEDS: VALIUM PO PRN (21:14)
[2019-11-23] MEDS: ZOFRAN INJ 4 MG VIAL IVP PRN (01:25)
[2019-11-23] MEDS: NS 1000 ML 1,000 ML IV SCH ×3 (02:05→18:09)
[2019-11-23] MEDS: NORCO 5/325 MG TAB PO PRN (02:06)
[2019-11-23] MEDS: FORTAZ or TAZICEF VIAL INJ 1 G in NS 100 ML IV + SPIKE MINIBAG* 100 ML IV SCH ×3 (05:13→22:01)
[2019-11-23 05:47] LABS: BASOPHILS % (AUTO) 0.5 % (0.2-1.0); EOSINOPHILS # (AUTO) 0.1 x10^3/uL (0.0-0.2); EOSINOPHILS % (AUTO) 1.3 % (0.9-2.9); HEMATOCRIT 29.4 % (36.0-47.0); HEMOGLOBIN 10.4 g/dL (12.0-16.0); LYMPHOCYTES # (AUTO) 1.4 X10^3/uL (1.3-2.9); LYMPHOCYTES % (AUTO) 18.1 % (21.0-51.0); MEAN CORPUSCULAR HEMOGLOBIN 32.9 pg (27.0-34.0); MEAN CORPUSCULAR HGB CONC 35.3 g/dL (33.0-35.0); MEAN CORPUSCULAR VOLUME 93.2 fL (80.0-100.0); MONOCYTES # (AUTO) 0.7 x10^3/uL (0.3-0.8); MONOCYTES % (AUTO) 9.7 % (0.0-13.0); NEUTROPHILS # (AUTO) 5.3 x10^3/uL (2.2-4.8); NEUTROPHILS % (AUTO) 70.4 % (42.0-75.0); PLATELET COUNT 148 X10^3/uL (150.0-450.0); RED BLOOD COUNT 3.16 X10^6/uL (3.5-5.4); RED CELL DISTRIBUTION WIDTH 12.9 % (11.6-16.5); WHITE BLOOD COUNT 7.6 X10^3/uL (3.6-10.0)
[2019-11-23 05:50] LABS: ALANINE AMINOTRANSFERASE 22 Units/L (12-78); ALBUMIN 3.3 g/dL (3.4-5.0); ALKALINE PHOSPHATASE 49 Units/L (46-116); ASPARTATE AMINO TRANSFERASE 21 Units/L (15-37); BLOOD UREA NITROGEN 10 mg/dL (7-18); CALCIUM 8.2 mg/dL (8.5-10.1); CARBON DIOXIDE 29.9 mmol/L (21-32); CHLORIDE 106 mmol/L (98-107); COR CA(FOR HYPOALB) 8.8 mg/dL (8.5-10.1); CREATININE 0.81 mg/dL (0.55-1.02); SODIUM 143 mmol/L (136-145); TOTAL PROTEIN 5.9 g/dL (6.4-8.2); eGFR NON BLACK RACES > 60 (>60)
[2019-11-23] MEDS ORDERED: DIPRIVAN VIAL 20 ML ONE (08:56)
[2019-11-23] MEDS: K-DUR TAB 20 MEQ PO PRN (09:39)
[2019-11-23] MEDS: CELEXA PO SCH (09:40)
[2019-11-23] MEDS: ALBUMIN HUMAN 25%- 100 ML 100 ML IV SCH (09:41)
[2019-11-23] MEDS: NORVASC TAB 5 MG PO SCH (09:41)
[2019-11-23] MEDS: MILK OF MAGNESIA PO SCH ×2 (09:41→22:01)
[2019-11-23] MEDS: COLACE CAP 100 MG PO SCH ×2 (09:41→22:01)
[2019-11-23] MEDS: LEVAQUIN PREMIX IV 750 MG 750 MG/150 ML BAG IV SCH (09:42)
[2019-11-23] MEDS: LOVENOX INJ 40 MG SYR SC SCH (09:42)
[2019-11-23] MEDS: MIRALAX POWDER (1 DOSE 17 G) PO SCH ×2 (09:43→22:01)
[2019-11-23] MEDS: IRBESARTAN 300 MG PO SCH (09:43)
[2019-11-23] MEDS ORDERED: DESITIN OINT TOP PRN (15:08)
[2019-11-23] MEDS ORDERED: STERILE WATER IRRIGATION IR ONE (15:40)
--- NOTE | 2019-11-23 19:50 | PCM.PROG ---
Progress Note - Progress Note for Day of Date of Exam: 11/22/19 - Subjective Subjective: IS BEING TREATED FOR ABDOMINAL PAIN, COLITIS, AND CONSTIPATION. TODAY, SHE IS ALERT AND ORIENTED, LYING IN BED ON MORNING ROUNDS. SHE CONTINUES WITH COMPLAINTS OF ABDOMINAL PAIN TODAY. SHE CONTINUES TO DENY A BOWEL MOVEMENT SINCE ADMISSION. ON EXAMINATION, HEART IS REGULAR IN RATE AND RHYTHM. BILATERAL LUNGS ARE NOTED WITH DIMINISHED LUNG SOUNDS THROUGHOUT. ABDOMEN IS DISTENDED AND NOTED WITH DIFFUSE TENDERNESS TO PALPATION. HYPOACTIVE BOWEL SOUNDS ARE NOTED IN ALL QUADRANTS. HER VITALS THIS MORNING ARE: 98.1-81-18-95%-171/73. LABS WERE OBTAINED. ABNORMAL LAB VALUES INCLUDE THE FOLLOWING: RBC 3.45,HGB 11.2, HCT 32.1. A KUB WAS OBTAINED TODAY AND REVEALED: Persistent large amount of stool throughout the colon in fact there appears to be more than was present on the last study of November 19. Again there appears to be a point of transition or no narrowing in the sigmoid colon the may be a mild stricture no high-grade obstruction is seen colonoscopy is recommended. There is mild wall thickening in this segment of the sigmoid colon at the junction to the descending colon. This again could be colitis but is 2 longer stricture to represent carcinoma. The amount of stool has increased not decreased since the last study. There is no small-bowel obstruction or distentio n. Old granulomas disease. No free air free fluid in the abdomen. There is degenerative disc disease greatest on the right at L3-4. SHE IS CURRENTLY RECEIVING IV FLUIDS, THE POTASSIUM AND MAGNESIUM PROTOCOLS, IV LEVAQUIN, IV FORTAZ, ALBUMIN, AND HOME MEDICATIONS WERE RESUMED. WE WILL CONSULT WITH DR SKINNER TODAY REGUARDING CT FINDINGS. OTHERWISE, WE WILL CONTINUE WITH CURRENT PLAN OF CARE TODAY. WE PLAN TO FOLLOW UP WITH AM LABS AND CONTINUE TO MONITOR. - Past Medical Family Social History Past Med/Fam/Surg Hx: No changes since H&P Allergies: Allergies No Known Drug Allergies Allergy (Verified 11/19/19 06:29) - Review of Systems ROS: No change since H&P - Vital Signs and I&O's Vital Signs: Temperature 98.3 F Pulse Rate [Right Brachial] 74 Pulse Rate 81 Respiratory Rate 18 Blood Pressure [Right Arm] 137/64 Blood Pressure 148/69 O2 Sat by Pulse Oximetry 96 Intake and Output: Intake & Output 11/21/19 11/22/19 11/23/19 11/24/19 11:59 11:59 11:59 11:59 Intake Total 3521 / 3521 2720 / 2720 2820 / 2820 560 / 560 Balance 3521 / 3521 2720 / 2720 2820 / 2820 560 / 560 - Physical Exam Oriented: Normal Eyes: Normal Ear: Normal Nose: Normal Throat: Normal Respiratory: Normal Cardiovascular: Normal : Normal Auscultation: Bowel Sounds: Decreased Palpation: Normal Tenderness: Diffuse, Other (diffuse moderate tenderness of mid abdomen , no rebound . BS+). negative: Rebound, Rigidity Skin: Normal Musculoskeletal: Normal Psychiatric: Normal Mood Description: Calm Affect: Normal Speech Pattern: Clear, Appropriate - Laboratory and Diagnostics Result Diagrams: 11/23/19 05:03 11/23/19 05:03 Labs: Laboratory WBC 7.6 X10^3/uL (3.6-10.0) 11/23/19 05:03 RBC 3.16 X10^6/uL (3.5-5.4) L 11/23/19 05:03 Hgb 10.4 g/dL (12.0-16.0) L 11/23/19 05:03 Hct 29.4 % (36.0-47.0) L 11/23/19 05:03 MCV 93.2 fL (80.0-100.0) 11/23/19 05:03 MCH 32.9 pg (27.0-34.0) 11/23/19 05:03 MCHC 35.3 g/dL (33.0-35.0) H 11/23/19 05:03 RDW 12.9 % (11.6-16.5) 11/23/19 05:03 Plt Count 148 X10^3/uL (150.0-450.0) L 11/23/19 05:03 MPV 9.0 fL (7.4-11.0) 11/23/19 05:03 Neut % (Auto) 70.4 % (42.0-75.0) 11/23/19 05:03 Lymph % (Auto) 18.1 % (21.0-51.0) L 11/23/19 05:03 [place] % (Auto) 9.7 % (0.0-13.0) 11/23/19 05:03 Eos % (Auto) 1.3 % (0.9-2.9) 11/23/19 05:03 Baso % (Auto) 0.5 % (0.2-1.0) 11/23/19 05:03 Neut # (Auto) 5.3 x10^3/uL (2.2-4.8) H 11/23/19 05:03 Lymph # (Auto) 1.4 X10^3/uL (1.3-2.9) 11/23/19 05:03 [place] # (Auto) 0.7 x10^3/uL (0.3-0.8) 11/23/19 05:03 Eos # (Auto) 0.1 x10^3/uL (0.0-0.2) 11/23/19 05:03 Baso # (Auto) 0.0 X10^3/uL (0.0-0.1) 11/23/19 05:03 Absolute Nucleated RBC 0.0 /100WBC 11/23/19 05:03 Sodium 143 mmol/L (136-145) 11/23/19 05:03 Corrected Sodium TNP 11/23/19 05:03 Potassium 3.4 mmol/L (3.5-5.1) L 11/23/19 05:03 Chloride 106 mmol/L (98-107) 11/23/19 05:03 Carbon Dioxide 29.9 mmol/L (21-32) 11/23/19 05:03 BUN 10 mg/dL (7-18) 11/23/19 05:03 Creatinine 0.81 mg/dL (0.55-1.02) 11/23/19 05:03 Est GFR (MDRD) Af Amer > 60 (>60) 11/23/19 05:03 Est GFR (MDRD) Non-Af > 60 (>60) 11/23/19 05:03 Glucose 88 mg/dL (65-99) 11/23/19 05:03 Calcium 8.2 mg/dL (8.5-10.1) L 11/23/19 05:03 Corrected Calcium 8.8 mg/dL (8.5-10.1) 11/23/19 05:03 Magnesium 1.9 mg/dL (1.7-2.9) 11/23/19 05:03 Total Bilirubin 0.30 mg/dL (0.2-1.0) 11/23/19 05:03 AST 21 Units/L (15-37) 11/23/19 05:03 ALT 22 Units/L (12-78) 11/23/19 05:03 Alkaline Phosphatase 49 Units/L (46-116) 11/23/19 05:03 Total Protein 5.9 g/dL (6.4-8.2) L 11/23/19 05:03 Albumin 3.3 g/dL (3.4-5.0) L 11/23/19 05:03 Globulin 2.6 g/dL (2.5-4.5) 11/23/19 05:03 Albumin/Globulin Ratio 1.3 Ratio (1.1-2.1) 11/23/19 05:03 Amylase 42 Units/L (25-115) 11/19/19 07:15 Lipase 58 Units/L (73-393) L 11/19/19 07:15 Specimen Type Clean catch urine 11/19/19 12:24 Urine Color Yellow (YELLOW) 11/19/19 12:24 Urine Appearance Clear (CLEAR) 11/19/19 12:24 Urine pH 5.0 (5.0 - 8.0) 11/19/19 12:24 Ur Specific Fl[place] 1.015 (1.000-1.030) 11/19/19 12:24 Urine Protein Negative (NEGATIVE) 11/19/19 12:24 Urine Glucose (UA) Negative (NEGATIVE) 11/19/19 12:24 Urine Ketones 3+ (NEGATIVE) 11/19/19 12:24 Urine Occult Blood 1+ (NEGATIVE) 11/19/19 12:24 Urine Nitrite Negative (NEGATIVE) 11/19/19 12:24 Urine Bilirubin Negative (NEGATIVE) 11/19/19 12:24 Urine Urobilinogen Normal (NORMAL) 11/19/19 12:24 Ur Leukocyte Esterase Negative (NEGATIVE) 11/19/19 12:24 Urine RBC 0-2 /HPF (0-3) 11/19/19 12:24 Urine WBC None seen /HPF (0-5) 11/19/19 12:24 Ur Squamous Epith Cells Rare /HPF (NEGATIVE) 11/19/19 12:24 Urine Bacteria Negative /HPF (NEGATIVE) 11/19/19 12:24 Ur Culture Indicated? No/not indicated 11/19/19 12:24 - Plan (1) Abdominal pain Status: Acute Qualifiers: Abdominal location: generalized Qualified Code(s): R10.84 - Generalized abdominal pain Plan: KUB showed stool in the distal colon along with partial obstruction. Keep NPO except ice chips. Repeat KUB in the AM (2) Colitis Status: Acute Plan: Continue IV antibiotics, NPO and pain control. Continue hydration (3) Constipation Status: Acute Qualifiers: Constipation type: unspecified constipation type Qualified Code(s): K59.00 - Constipation, unspecified
--- NOTE | 2019-11-23 20:17 | PCM.PROG ---
Progress Note - Progress Note for Day of Date of Exam: 11/23/19 - Subjective Subjective: IS BEING TREATED FOR ABDOMINAL PAIN, COLITIS, AND CONSTIPATION. TODAY, SHE IS ALERT AND ORIENTED, LYING IN BED ON MORNING ROUNDS. SHE CONTINUES WITH COMPLAINTS OF ABDOMINAL PAIN TODAY. SHE WAS GIVEN ENEMAS AND REPORTS SEVERAL BOWEL MOVEMENTS SINCE YESTERDAY. ON EXAMINATION, HEART IS REGULAR IN RATE AND RHYTHM. BILATERAL LUNGS ARE NOTED WITH DIMINISHED LUNG SOUNDS THROUGHOUT. ABDOMEN IS DISTENDED AND NOTED WITH DIFFUSE TENDERNESS TO PALPATION. HYPOACTIVE BOWEL SOUNDS ARE NOTED IN ALL QUADRANTS. HER VITALS THIS MORNING ARE: 98.4-71-18-94%-168/73. LABS WERE OBTAINED. ABNORMAL LAB VALUES INCLUDE THE FOLLOWING: RBC 3.16, HGB 10.4, HCT 29.4, POTASSIUM 3.4, CALCIUM 8.2, TOTAL PROTEIN 5.9, ALBUMIN 3.3. WE CONSULTED WITH GAIL. HE PLANS FOR A COLONOSCOPY THIS MORNING TO RULE OUT NEOPLASM. WE DISCUSSED PLANS WITH THE PATIENT AND WE ARE IN AGREEMENT WITH HIS PLAN OF CARE. TIME SPENT WITH PATIENT AND PHYSICIAN IS GREATER THAN 16 MINUTES. SHE IS CURRENTLY RECEIVING IV FLUIDS, THE POTASSIUM AND MAGNESIUM PROTOCOLS, IV LEVAQUIN, IV FORTAZ, ALBUMIN, AND HOME MEDICATIONS WERE RESUMED. WE WILL CONTINUE WITH CURRENT PLAN OF CARE TODAY. OTHERWISE, WE PLAN TO FOLLOW UP WITH AM LABS AND CONTINUE TO MONITOR. - Past Medical Family Social History Past Med/Fam/Surg Hx: No changes since H&P Allergies: Allergies No Known Drug Allergies Allergy (Verified 11/19/19 06:29) - Review of Systems ROS: No change since H&P - Vital Signs and I&O's Vital Signs: Temperature 98.3 F Pulse Rate [Right Brachial] 74 Pulse Rate 81 Respiratory Rate 18 Blood Pressure [Right Arm] 137/64 Blood Pressure 148/69 O2 Sat by Pulse Oximetry 96 Intake and Output: Intake & Output 11/21/19 11/22/19 11/23/19 11/24/19 11:59 11:59 11:59 11:59 Intake Total 3521 / 3521 2720 / 2720 2820 / 2820 560 / 560 Balance 3521 / 3521 2720 / 2720 2820 / 2820 560 / 560 - Physical Exam Oriented: Normal Eyes: Normal Ear: Normal Nose: Normal Throat: Normal Respiratory: Normal Cardiovascular: Normal : Normal Auscultation: Bowel Sounds: Decreased Palpation: Normal Tenderness: Diffuse, Other (diffuse moderate tenderness of mid abdomen , no rebound . BS+). negative: Rebound, Rigidity Skin: Normal Musculoskeletal: Normal Psychiatric: Normal Mood Description: Calm Affect: Normal Speech Pattern: Clear, Appropriate - Laboratory and Diagnostics Result Diagrams: 11/23/19 05:03 11/23/19 05:03 Labs: Laboratory WBC 7.6 X10^3/uL (3.6-10.0) 11/23/19 05:03 RBC 3.16 X10^6/uL (3.5-5.4) L 11/23/19 05:03 Hgb 10.4 g/dL (12.0-16.0) L 11/23/19 05:03 Hct 29.4 % (36.0-47.0) L 11/23/19 05:03 MCV 93.2 fL (80.0-100.0) 11/23/19 05:03 MCH 32.9 pg (27.0-34.0) 11/23/19 05:03 MCHC 35.3 g/dL (33.0-35.0) H 11/23/19 05:03 RDW 12.9 % (11.6-16.5) 11/23/19 05:03 Plt Count 148 X10^3/uL (150.0-450.0) L 11/23/19 05:03 MPV 9.0 fL (7.4-11.0) 11/23/19 05:03 Neut % (Auto) 70.4 % (42.0-75.0) 11/23/19 05:03 Lymph % (Auto) 18.1 % (21.0-51.0) L 11/23/19 05:03 Brule % (Auto) 9.7 % (0.0-13.0) 11/23/19 05:03 Eos % (Auto) 1.3 % (0.9-2.9) 11/23/19 05:03 Baso % (Auto) 0.5 % (0.2-1.0) 11/23/19 05:03 Neut # (Auto) 5.3 x10^3/uL (2.2-4.8) H 11/23/19 05:03 Lymph # (Auto) 1.4 X10^3/uL (1.3-2.9) 11/23/19 05:03 Brule # (Auto) 0.7 x10^3/uL (0.3-0.8) 11/23/19 05:03 Eos # (Auto) 0.1 x10^3/uL (0.0-0.2) 11/23/19 05:03 Baso # (Auto) 0.0 X10^3/uL (0.0-0.1) 11/23/19 05:03 Absolute Nucleated RBC 0.0 /100WBC 11/23/19 05:03 Sodium 143 mmol/L (136-145) 11/23/19 05:03 Corrected Sodium TNP 11/23/19 05:03 Potassium 3.4 mmol/L (3.5-5.1) L 11/23/19 05:03 Chloride 106 mmol/L (98-107) 11/23/19 05:03 Carbon Dioxide 29.9 mmol/L (21-32) 11/23/19 05:03 BUN 10 mg/dL (7-18) 11/23/19 05:03 Creatinine 0.81 mg/dL (0.55-1.02) 11/23/19 05:03 Est GFR (MDRD) Af Amer > 60 (>60) 11/23/19 05:03 Est GFR (MDRD) Non-Af > 60 (>60) 11/23/19 05:03 Glucose 88 mg/dL (65-99) 11/23/19 05:03 Calcium 8.2 mg/dL (8.5-10.1) L 11/23/19 05:03 Corrected Calcium 8.8 mg/dL (8.5-10.1) 11/23/19 05:03 Magnesium 1.9 mg/dL (1.7-2.9) 11/23/19 05:03 Total Bilirubin 0.30 mg/dL (0.2-1.0) 11/23/19 05:03 AST 21 Units/L (15-37) 11/23/19 05:03 ALT 22 Units/L (12-78) 11/23/19 05:03 Alkaline Phosphatase 49 Units/L (46-116) 11/23/19 05:03 Total Protein 5.9 g/dL (6.4-8.2) L 11/23/19 05:03 Albumin 3.3 g/dL (3.4-5.0) L 11/23/19 05:03 Globulin 2.6 g/dL (2.5-4.5) 11/23/19 05:03 Albumin/Globulin Ratio 1.3 Ratio (1.1-2.1) 11/23/19 05:03 Amylase 42 Units/L (25-115) 11/19/19 07:15 Lipase 58 Units/L (73-393) L 11/19/19 07:15 Specimen Type Clean catch urine 11/19/19 12:24 Urine Color Yellow (YELLOW) 11/19/19 12:24 Urine Appearance Clear (CLEAR) 11/19/19 12:24 Urine pH 5.0 (5.0 - 8.0) 11/19/19 12:24 Ur Specific [place] 1.015 (1.000-1.030) 11/19/19 12:24 Urine Protein Negative (NEGATIVE) 11/19/19 12:24 Urine Glucose (UA) Negative (NEGATIVE) 11/19/19 12:24 Urine Ketones 3+ (NEGATIVE) 11/19/19 12:24 Urine Occult Blood 1+ (NEGATIVE) 11/19/19 12:24 Urine Nitrite Negative (NEGATIVE) 11/19/19 12:24 Urine Bilirubin Negative (NEGATIVE) 11/19/19 12:24 Urine Urobilinogen Normal (NORMAL) 11/19/19 12:24 Ur Leukocyte Esterase Negative (NEGATIVE) 11/19/19 12:24 Urine RBC 0-2 /HPF (0-3) 11/19/19 12:24 Urine WBC None seen /HPF (0-5) 11/19/19 12:24 Ur Squamous Epith Cells Rare /HPF (NEGATIVE) 11/19/19 12:24 Urine Bacteria Negative /HPF (NEGATIVE) 11/19/19 12:24 Ur Culture Indicated? No/not indicated 11/19/19 12:24 - Plan (1) Abdominal pain Status: Acute Qualifiers: Abdominal location: generalized Qualified Code(s): R10.84 - Generalized abdominal pain Plan: KUB showed stool in the distal colon along with partial obstruction. Keep NPO except ice chips. Repeat KUB in the AM (2) Colitis Status: Acute Plan: Continue IV antibiotics, NPO and pain control. Continue hydration (3) Constipation Status: Acute Qualifiers: Constipation type: unspecified constipation type Qualified Code(s): K59.00 - Constipation, unspecified
[2019-11-23] MEDS: VALIUM PO PRN (21:00)
[2019-11-23] MEDS: BENADRYL CAP/TAB 25 MG PO SCH (22:01)
[2019-11-23] MEDS: NAMENDA TAB 10 MG PO SCH (22:01)
[2019-11-24 05:43] LABS: BASOPHILS # (AUTO) 0.1 X10^3/uL (0.0-0.1); BASOPHILS % (AUTO) 0.6 % (0.2-1.0); EOSINOPHILS # (AUTO) 0.2 x10^3/uL (0.0-0.2); EOSINOPHILS % (AUTO) 1.7 % (0.9-2.9); HEMATOCRIT 28.4 % (36.0-47.0); HEMOGLOBIN 10.1 g/dL (12.0-16.0); LYMPHOCYTES # (AUTO) 1.9 X10^3/uL (1.3-2.9); LYMPHOCYTES % (AUTO) 21.4 % (21.0-51.0); MEAN CORPUSCULAR HEMOGLOBIN 32.7 pg (27.0-34.0); MEAN CORPUSCULAR HGB CONC 35.4 g/dL (33.0-35.0); MEAN CORPUSCULAR VOLUME 92.4 fL (80.0-100.0); MONOCYTES # (AUTO) 0.8 x10^3/uL (0.3-0.8); MONOCYTES % (AUTO) 9.4 % (0.0-13.0); NEUTROPHILS # (AUTO) 5.8 x10^3/uL (2.2-4.8); NEUTROPHILS % (AUTO) 66.9 % (42.0-75.0); PLATELET COUNT 135 X10^3/uL (150.0-450.0); RED BLOOD COUNT 3.08 X10^6/uL (3.5-5.4); RED CELL DISTRIBUTION WIDTH 12.7 % (11.6-16.5); WHITE BLOOD COUNT 8.7 X10^3/uL (3.6-10.0)
[2019-11-24 05:57] LABS: ALANINE AMINOTRANSFERASE 25 Units/L (12-78); ALBUMIN 3.4 g/dL (3.4-5.0); ALKALINE PHOSPHATASE 47 Units/L (46-116); ASPARTATE AMINO TRANSFERASE 24 Units/L (15-37); BLOOD UREA NITROGEN 13 mg/dL (7-18); CALCIUM 8.4 mg/dL (8.5-10.1); CARBON DIOXIDE 30.2 mmol/L (21-32); CHLORIDE 106 mmol/L (98-107); CREATININE 0.75 mg/dL (0.55-1.02); PLATELET MORPHOLOGY COMMENT NORMAL (NORMAL); SODIUM 142 mmol/L (136-145); TOTAL PROTEIN 6.2 g/dL (6.4-8.2); eGFR NON BLACK RACES > 60 (>60)
[2019-11-24] MEDS: FORTAZ or TAZICEF VIAL INJ 1 G in NS 100 ML IV + SPIKE MINIBAG* 100 ML IV SCH (06:02)
[2019-11-24] MEDS: K-DUR TAB 20 MEQ PO PRN (06:32)
[2019-11-24] MEDS: ALBUMIN HUMAN 25%- 100 ML 100 ML IV SCH (08:39)
[2019-11-24] MEDS: LOVENOX INJ 40 MG SYR SC SCH (08:46)
[2019-11-24] MEDS: LEVAQUIN PREMIX IV 750 MG 750 MG/150 ML BAG IV SCH (08:46)
[2019-11-24] MEDS: NORVASC TAB 5 MG PO SCH (08:47)
[2019-11-24] MEDS: COLACE CAP 100 MG PO SCH (08:47)
[2019-11-24] MEDS: MILK OF MAGNESIA PO SCH (08:48)
[2019-11-24] MEDS: CELEXA PO SCH (08:48)
[2019-11-24] MEDS: MIRALAX POWDER (1 DOSE 17 G) PO SCH (08:49)
[2019-11-24] MEDS: IRBESARTAN 300 MG PO SCH (08:49)
[2019-11-24 13:38] VITALS: BP 170/78
== END 2019-11-24 13:30 | disposition home health service (06) | DRG 392 ==
LOC: ER 06:28 → OBSVTOIN 08:37 → INTOOBSV 08:37 → MED/SURG 08:37 → INTOOBSV 11-21 10:00
PROVIDERS: ADMIT Internal Medicine; ATTEND Internal Medicine
PROC: SIGMOID (2019-11-23 09:05)
DX: K59.00 Constipation, unspecified; R11.2 Nausea with vomiting, unspecified; K57.30 Diverticulosis of large intestine without perforation or abscess without bleeding; R10.84 Generalized abdominal pain; I10 Essential (primary) hypertension; R26.89 Other abnormalities of gait and mobility; K58.1 Irritable bowel syndrome with constipation; K56.690 Other partial intestinal obstruction
CPT/HCPCS: 36415; 74000; 74018; 74176; 74177; 80053; 81001; 82150; 82378; 83690; 83735; 84132; 85025; 96365; 96374; 96375; 97161; 97166; 99100; 99284; A4217; A4222; G0378; J0713; J1650; J1956; J2405; J2704; J3490; J7030; J7050; P9047